=== PATIENT | male | born 1965 | race Caucasian/White ===

== ENCOUNTER 2019-02-06 10:58 | Emergency (ER) | payer SELFPAY ==
[2019-02-06] MEDS ORDERED: Sodium Chloride 0.9% 10 ML Syringe FLUSH PRN (11:10)
--- NOTE | 2019-02-06 11:34 | EDM.PDOC ---
ED HPI GENERAL MEDICAL PROBLEM - General Chief Complaint: Chest Pain Stated Complaint: CHEST PAIN FOR 4 DAYS Time Seen by Provider: 02/06/19 11:08 Source of Information: Reports: Patient History Limitations: Reports: No Limitations - History of Present Illness INITIAL COMMENTS - FREE TEXT/NARRATIVE: 53 y/o male presents to ER with cc chest pain for the past 4 days. He reports he wakes in the morning with chest pain that "takes his breath away." The pain radiates into neck. It does not radiate into arms or back. He denies SOB, fever or chills. He is a former smoker 10 years ago. He reports being healthy otherwise and takes no medication on a regular basis. He reports that his father of a sudden cardiac arrest at age 54. The patient is anxious and concerned. 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 [No Known Home Meds] 02/06/19 [History] Past Medical History Musculoskeletal History: Reports: Other (See Below) Other Musculoskeletal History: fractured neck and had surgery Social & Family History - Tobacco Use Smoking Status *Q: Former Smoker Used Tobacco, but Quit: Yes Month/Year Tobacco Last Used: 2009 - Caffeine Use Caffeine Use: Reports: Coffee, Soda, Tea - Recreational Drug Use Recreational Drug Use: No ED ROS GENERAL - Review of Systems Review Of Systems: See Below Constitutional: Denies: Fever, Chills HEENT: Reports: No Symptoms Respiratory: Denies: Shortness of Breath Cardiovascular: Reports: Chest Pain Endocrine: Reports: No Symptoms GI/Abdominal: Reports: No Symptoms : Reports: No Symptoms Musculoskeletal: Reports: No Symptoms Skin: Reports: No Symptoms Neurological: Reports: No Symptoms Psychiatric: Reports: No Symptoms Hematologic/Lymphatic: Reports: No Symptoms Immunologic: Reports: No Symptoms ED EXAM, GENERAL - Physical Exam Exam: See Below Exam Limited By: No Limitations General Appearance: Alert, WD/WN, No Apparent Distress Nose: Normal Inspection, Normal Mucosa, No Blood Throat/Mouth: Normal Inspection, Normal Lips, Normal Teeth, Normal Gums, Normal Oropharynx, Normal Voice, No Airway Compromise Head: Atraumatic, Normocephalic Neck: Normal Inspection, Supple, Non-Tender, Full Range of Motion Respiratory/Chest: No Respiratory Distress, No Accessory Muscle Use, Chest Non- Tender, Decreased Breath Sounds (right anterior lobe) Cardiovascular: Normal Peripheral Pulses, Regular Rate, Rhythm, No Edema, No Gallop, No JVD, No Murmur, No Rub GI/Abdominal: Normal Bowel Sounds, Soft, Non-Tender, No Organomegaly, No Distention, No Abnormal Bruit, No Mass, Pelvis Stable Back Exam: Normal Inspection, Full Range of Motion Extremities: Normal Inspection, Normal Range of Motion, Non-Tender, No Pedal Edema, Normal Capillary Refill Neurological: Alert, Oriented, CN II-XII Intact, Normal Cognition, Normal Gait, Normal Reflexes, No Motor/Sensory Deficits Psychiatric: Normal Affect, Anxious Skin Exam: Warm, Dry, Intact, Normal Color, No Rash Lymphatic: No Adenopathy EKG INTERPRETATION EKG Date: 02/06/19 Time: 11:36 Rhythm: NSR Rate (Beats/Min): 81 Course - Vital Signs Last Recorded V/S: Last Vital Signs Temp 98.1 F 02/06/19 11:11 Pulse 88 02/06/19 11:11 Resp 15 02/06/19 11:11 BP 136/103 H 02/06/19 11:11 Pulse Ox 95 02/06/19 11:11 - Orders/Labs/Meds Orders: Active Orders 24 hr Category Date Time Status EKG Documentation Completion [RC] STAT Care 02/06/19 11:09 Active Sodium Chloride 0.9% [Saline Flush] Med 02/06/19 11:10 Active 10 ml FLUSH ASDIRECTED PRN Saline Lock Insert [OM.PC] Routine Oth 02/06/19 11:10 Ordered Medication Orders Sodium Chloride (Saline Flush) 10 ml FLUSH ASDIRECTED PRN PRN Reason: Keep Vein Open Last Admin: 02/06/19 11:47 Dose: 10 ml Labs: Laboratory Tests 02/06/19 02/06/19 Range/Units 11:30 11:30 WBC 5.30 (4.23-9.07) K/mm3 RBC 4.62 L (4.63-6.08) M/mm3 Hgb 14.3 (13.7-17.5) gm/L Hct 43.8 (40.1-51.0) % MCV 94.8 H (79.0-92.2) fl MCH 31.0 (25.7-32.2) pg MCHC 32.6 (32.2-35.5) g/dl RDW Std Deviation 44.3 H (35.1-43.9) fL Plt Count 282 (163-337) K/mm3 MPV 8.9 L (9.4-12.3) fl Neut % (Auto) 66.5 (34.0-67.9) % Lymph % (Auto) 22.5 (21.8-53.1) % [place] % (Auto) 9.1 (5.3-12.2) % Eos % (Auto) 1.5 (0.8-7.0) Baso % (Auto) 0.2 (0.1-1.2) % Neut # (Auto) 3.53 (1.78-5.38) K/mm3 Lymph # (Auto) 1.19 L (1.32-3.57) K/mm3 [place] # (Auto) 0.48 (0.30-0.82) K/mm3 Eos # (Auto) 0.08 (0.04-0.54) K/mm3 Baso # (Auto) 0.01 (0.01-0.08) K/mm3 Sodium 140 (136-145) mEq/L Potassium 4.6 (3.5-5.1) mEq/L Chloride 104 (98-107) mEq/L Carbon Dioxide 25 (21-32) mEq/L Anion Gap 15.6 H (5-15) BUN 16 (7-18) mg/dL Creatinine 0.8 (0.7-1.3) mg/dL Est Cr Clr Drug Dosing 112.80 mL/min Estimated GFR (MDRD) > 60 (>60) mL/min BUN/Creatinine Ratio 20.0 H (14-18) Glucose 111 H (74-106) mg/dL Calcium 9.2 (8.5-10.1) mg/dL Total Bilirubin 0.7 (0.2-1.0) mg/dL AST 13 L (15-37) U/L ALT 25 (16-63) U/L Alkaline Phosphatase 100 (46-116) U/L CK-MB (CK-2) 2.8 (0-3.6) ng/ml Troponin I < 0.017 (0.00-0.056) ng/mL Total Protein 7.0 (6.4-8.2) g/dl Albumin 3.5 (3.4-5.0) g/dl Globulin 3.5 gm/dL Albumin/Globulin Ratio 1.0 (1-2) Meds: Medications Generic Name Dose Route Start Last Admin Trade Name Freq PRN Reason Stop Dose Admin Sodium Chloride 10 ml 02/06/19 11:10 02/06/19 11:47 Saline Flush FLUSH 10 ml ASDIRECTED PRN Administration Keep Vein Open Discontinued Medications Generic Name Dose Route Start Last Admin Trade Name Freq PRN Reason Stop Dose Admin Ketorolac Tromethamine 30 mg 02/06/19 11:53 02/06/19 12:02 Toradol IVPUSH 02/06/19 11:54 30 mg ONETIME ONE Administration - Re-Assessments/Exams Free Text/Narrative Re-Assessment/Exam: 02/06/19 11:52 EKG reveals NSR rate 81. WBC 5.30 RBC 4.62 H & H 14.3/43.8. 02/06/19 12:13 Chest x-ray reveals no acute disease process. Patient reports he feels better pain is a 11/18. 02/06/19 12:38 NA+ 140 K + 4.6 chl 104 co2 25 glucose 111 troponin 0.017. I don't feel his pain is cardiac in nature. I will discharge home with instructions to follow up with a PCP for further testing and evaluation on a outpatient basis. Patient verbalized understanding and is comfortable with plan for discharge. Departure - Departure Time of Disposition: 12:39 Disposition: Home, Self-Care 01 Condition: Good Clinical Impression: Atypical chest pain Referrals: PCP,None [Primary Care Provider] - Jewel Casanova PA [Physician Stave Grader] - Forms: ED Department Discharge Additional Instructions: You have been diagnosis with atypical chest pain. Your EKG, chest x-ray were normal. Your blood studies were unremarkable. I recommend you follow up with PCP for further evaluation and out patient testing. I have given you a provider in the area. Return to the ER for any new or acute worsening symptoms. - My Orders Last 24 Hours: My Active Orders 02/06/19 11:09 EKG Documentation Completion [RC] STAT 02/06/19 11:10 Sodium Chloride 0.9% [Saline Flush] 10 ml FLUSH ASDIRECTED PRN Saline Lock Insert [OM.PC] Routine - Assessment/Plan Last 24 Hours: My Active Orders 02/06/19 11:09 EKG Documentation Completion [RC] STAT 02/06/19 11:10 Sodium Chloride 0.9% [Saline Flush] 10 ml FLUSH ASDIRECTED PRN Saline Lock Insert [OM.PC] Routine
[2019-02-06] MEDS ORDERED: Ketorolac 30 MG/ML SDV IVPUSH ONE (11:53)
--- NOTE | 2019-02-06 12:17 | CR ---
Chest: Two views of the chest were obtained. Comparison: No prior chest x-ray. Heart size is normal. Tortuous thoracic aorta is seen. Lungs are clear with no acute parenchymal change. Mild degenerative change is seen within the spine. Impression: 1. Incidental findings. Nothing acute is appreciated. Diagnostic code #2
== END 2019-02-06 12:55 | disposition home or self-care (01) ==
LOC: JD.ED 10:58
DX: R07.89 Other chest pain (principal); Z87.891 Personal history of nicotine dependence
CPT/HCPCS: 36415; 71046; 80053; 82553; 84484; 85025; 93005; 96374; 99285; J1885; 93010